=== PATIENT | male | born 1995 | race Two or more races ===

== ENCOUNTER 2016-03-23 03:07 | Emergency (ER) | payer OTHER ==
[~2016-03-23] VITALS: Ht 182.9 cm; Wt 84.4 kg
[2016-03-23 03:53] LABS: INFLUENZA A VIRAL ANTIGEN NEGATIVE; INFLUENZA B VIRAL ANTIGEN NEGATIVE
[2016-03-23] MEDS ORDERED: MUCINEX D ER T1 EAC1 PO (04:51)
[2016-03-23] MEDS ORDERED: AUGMENTIN875 MG PO (04:51)
[2016-03-23 05:04] VITALS: BP 147/78
== END 2016-03-23 05:07 | disposition home or self-care (01) ==
LOC: EXP 03:07 → EME 03:07 → EXP 05:07
DX: J32.9 Chronic sinusitis, unspecified (principal)
CPT/HCPCS: 71020; 87502; 87651 90; 99281; 99284

== ENCOUNTER 2017-02-27 02:56 | Emergency (ER) | payer OTHER ==
[~2017-02-27] VITALS: Ht 182.9 cm; Wt 84.9 kg
[~2017-02-27 02:56] MED LIST: AUGMENTIN875 MG PO; MUCINEX D ER T1 EAC1 PO
[2017-02-27 03:06] VITALS: BP 131/75
[2017-02-27 03:40] LABS: HEMATOCRIT 43.1 % (38.0-50.0); HEMOGLOBIN 15.4 G/DL (12.5-16.6); MCHC 35.7 G/DL (30.0-36.0); MCV 89.4 FL (86-99); PLATELET COUNT 192 K/uL (156-360); RBC DIS.WIDTH-CV 12.2 % (11.8-14.6); RED BLOOD COUNT 4.82 M/uL (4.00-5.50); WHITE BLOOD COUNT 13.4 K/uL (4.1-10.2)
[2017-02-27 03:52] LABS: ALBUMIN 4.7 g/dL (3.2-4.8); CHLORIDE 104 mEq/L (99-109); POTASSIUM 4.1 mEq/L (3.7-5.4); SODIUM 140 mEq/L (136-147)
[2017-02-27 03:55] LABS: GLUCOSE 122 mg/dL (70-99); TOTAL PROTEIN 7.4 g/dL (6.4-8.3)
[2017-02-27 03:58] LABS: ALKALINE PHOSPHATASE 76 IU/L (3-129); CREATININE 0.9 mg/dL (0.6-1.3); GFR ESTIMATE (CALCULATED) > 59 mL/min/ (58.99-99999)
[2017-02-27 04:00] LABS: AST (GOT) 16 IU/L (2-34); UREA NITROGEN (BUN) 27 mg/dL (9-23)
[2017-02-27 04:01] LABS: ALT (GPT) 11 IU/L (3-49)
[2017-02-27 04:02] LABS: LIPASE 14 U/L (1.0-51.0)
== END 2017-02-27 03:40 | disposition left against medical advice (07) ==
LOC: EME 02:56
DX: R10.9 Unspecified abdominal pain (principal); R07.9 Chest pain, unspecified; Z53.21 Procedure and treatment not carried out due to patient leaving prior to being seen by health care provider
CPT/HCPCS: 80053; 81003; 83690; 85027

== ENCOUNTER 2017-09-08 19:44 | Emergency (ER) | payer OTHER ==
[~2017-09-08] VITALS: Ht 182.9 cm; Wt 83.9 kg
[2017-09-08 20:25] LABS: HEMATOCRIT 39.5 % (38.0-50.0); HEMOGLOBIN 14.6 G/DL (12.5-16.6); MCH 31.8 PG (29.0-34.0); MCV 86.1 FL (86-99); PLATELET COUNT 196 K/uL (156-360); RBC DIS.WIDTH-CV 12.2 % (11.8-14.6); RBC DIS.WIDTH-SD 38.2 % (39-53); RED BLOOD COUNT 4.59 M/uL (4.00-5.50); WHITE BLOOD COUNT 5.3 K/uL (4.1-10.2)
[2017-09-08 20:54] LABS: ALBUMIN 4.6 g/dL (3.2-4.8); CHLORIDE 106 mEq/L (99-109); POTASSIUM 3.8 mEq/L (3.7-5.4); SODIUM 140 mEq/L (136-147)
[2017-09-08 20:56] LABS: GLUCOSE 108 mg/dL (70-99); TOTAL PROTEIN 7.3 g/dL (6.4-8.3)
[2017-09-08 20:58] LABS: TOTAL BILIRUBIN 0.6 mg/dL (0.0-1.0)
[2017-09-08 21:00] LABS: ALKALINE PHOSPHATASE 73 IU/L (3-129); CREATININE 0.9 mg/dL (0.6-1.3); GFR ESTIMATE (CALCULATED) > 59 mL/min/ (58.99-99999)
[2017-09-08 21:01] LABS: AST (GOT) 14 IU/L (2-34); UREA NITROGEN (BUN) 14 mg/dL (9-23)
[2017-09-08 21:03] LABS: ALT (GPT) 9 IU/L (3-49)
[2017-09-08 21:05] LABS: APPEARANCE CLEAR ((CLEAR)); BILIRUBIN NEGATIVE; BLOOD NEGATIVE; COLOR YELLOW ((YELLOW)); GLUCOSE (STRIP) NEGATIVE; KETONES NEGATIVE; LEUKOCYTES NEGATIVE; NITRITE NEGATIVE; PROTEIN (STRIP) NEGATIVE; SPECIFIC GRAVITY 1.013 (1.000-1.030); UCUL ADDED? NO; UROBILINOGEN 0.2 MG/DL (0.2-1.0)
[2017-09-08] MEDS ORDERED: BENTYL10 MG PO (22:32)
[2017-09-08] MEDS ORDERED: PRILOSEC20 MG PO (22:32)
[2017-09-08 22:36] LABS: MONOSPOT (MONONUCLEOSIS SEROL) NEGATIVE
[2017-09-08 22:40] VITALS: BP 104/66
== END 2017-09-08 22:47 | disposition home or self-care (01) ==
LOC: EME 19:44
DX: R10.32 Left lower quadrant pain (principal)
CPT/HCPCS: 74019; 80053; 81003; 85027; 86308; 99281; 99283